=== PATIENT | female | born 1955 | race Caucasian/White ===

== ENCOUNTER 2016-09-15 16:35 | Emergency (ER) | payer MEDICAID ==
[~2016-09-15] VITALS: Ht 157.5 cm; Wt 61.2 kg
[~2016-09-15 16:35] MED LIST: ADVAI100I PO; ALBU8I INH; PRED20 PO; ZITH250T PO; ZOLP10TA3 PO; [UNRECOGNIZED DRUG - CODE] PO
[2016-09-15 16:37] VITALS: BP 139/98; PULSE 86; RESP 20; TEMP 98.7; O2SAT 96
[2016-09-15] MEDS ORDERED: SODIUM CHLOR 0.9% 1000 ML INJ 1,000 ML IV SCH (17:27)
[2016-09-15] MEDS ORDERED: PROCHLORPERAZINE INJ 10 MG/2 ML VIAL IVP ONE (17:30)
[2016-09-15] MEDS ORDERED: SODIUM CHLORIDE 0.9% FLUSH 5 ML FLUSH IVF PRN ×2 (17:30)
[2016-09-15] MEDS ORDERED: diphenhydrAMINE HCL 50 MG/ML VIAL IVP ONE (17:30)
[2016-09-15 17:31] VITALS: RESP 16; O2SAT 97
[2016-09-15 17:40] VITALS: BP 155/84; PULSE 84; RESP 16; O2SAT 97
--- NOTE | 2016-09-15 17:40 | PD ---
HPI Chief Complaint: Cold / Flu Symptoms Time Seen by Provider: 16:59 Travel History International Travel<30 days: No Contact w/Intl Traveler<30days: No Traveled to known affect area: No History of Present Illness HPI This is a 60-year-old female presents with headache over bilateral maxillary for the past few days. Patient has significant history of having colonoscopy and endoscopy this morning, she did have to be on BiPAP during the procedure and states that this seemed to make her headache worse when she woke up. Patient states she's also been having some nausea and vomiting unable to take her reflux medication secondary to a pH study is ongoing. Denies any abdominal pain or discomfort. She has not discussed these symptoms with her psychotherapist since leaving the procedure this morning. Denies any fevers. Does have a history of on and off headaches. PFSH Past Medical History Arthritis: Yes Asthma: Yes Autoimmune Disease: Yes ([place]) Cardiovascular Problems: Yes (HTN CHOL) High Cholesterol: Yes Chest Pain: Yes COPD: Yes Cerebrovascular Accident: Yes Diminished Hearing: No Fibromyalgia: Yes Headaches: Yes Hypertension: Yes Musculoskeletal: Yes (EXTENSIVE BACK PAIN/PROBLEMS) Respiratory: Yes (fibrosis) Pneumonia: Yes Sleep Apnea: Yes (c-pap) Ulcer: Yes Menopausal: Yes : 3 Para: 3 Tubal Ligation: Yes Past Surgical History Gynecologic Surgery: Yes Other Surgery: Yes (BREAST AUGMENTATION ) Social History Alcohol Use: No Tobacco Use: No Substance Use: No Allergies-Medications (Allergen,Severity, Reaction): Coded Allergies: HMG-CoA Reductase Inhibitors (Unverified Allergy, Unknown, Tingling, ) Reported Meds & Prescriptions Reported Meds & Active Scripts Active Zofran Odt (Ondansetron Odt) 4 Mg Tab 4 Mg SL Q6HR PRN Phenergan (Promethazine HCl) 25 Mg Tab 25 Mg PO Q6H PRN Azithromycin 250 Mg Tab 250 Mg PO DIRECTED Take 2 tabs (500 mg) on day 1 then 1 tab daily x 4 days. Zithromax Z-Bhavin (Azithromycin) 250 Mg Tab 250 Mg PO DIRECTED 500 MG (2 TABLETS) PO ON DAY 1, THEN 250 MG (1 TABLET) PO ON DAYS 2 TO 5. Deltasone 20 Mg Tab (Prednisone) 20 Mg Tab 40 Mg PO DAILY 4 Days Reported Advair Diskus 100/50 (Salmeterol Xinafoate/Fluticasone) Fluticasone/Salmeterol 100/50 Inh 2 Puff PO BID Ventolin Hfa (Albuterol Sulfate) 8 Gm Aero 1 Puff INH DIRECTED PRN * SHAKE WELL BEFORE USE * Ambien 10 Mg Tab (Zolpidem Tartrate) 10 Mg Tab 5 Mg PO HS PRN Ofev (Nintedanib Esylate) 100 Mg Cap 150 Mg PO DAILY Review of Systems Except as stated in HPI: all other systems reviewed are Neg Physical Exam Narrative GENERAL: Well-developed well-nourished Appears well, pleasant and smiling in no apparent distress. SKIN: Warm and dry. HEAD: Atraumatic. Normocephalic. EYES: Pupils equal and round. No scleral icterus. No injection or drainage. ENT: No nasal bleeding or discharge. Mucous membranes pink and moist. TM's clear bilaterally, minimal percussive tenderness to bilateral maxillae. Oropharynx clear. No facial swelling apprceiated. NECK: Trachea midline. No JVD. CARDIOVASCULAR: Regular rate and rhythm. No murmur appreciated. RESPIRATORY: No accessory muscle use. Clear to auscultation. Breath sounds equal bilaterally. GASTROINTESTINAL: Abdomen soft, non-tender, nondistended. Hepatic and splenic margins not palpable. MUSCULOSKELETAL: No obvious deformities. No clubbing. No cyanosis. No edema. NEUROLOGICAL: Awake and alert. Cranial nerves II through XII are grossly intact and nonfocal, 5 out of 5 strength in all 4 extremities, cerebellar testing negative, neck shock movements intact. PSYCHIATRIC: Appropriate mood and affect; insight and judgment normal. Data Data Last Documented VS Vital Signs Date Time Temp Pulse Resp B/P Pulse Ox O2 Delivery O2 Flow Rate FiO2 09/15/16 20:07 81 18 122/65 97 09/15/16 19:39 Room Air 09/15/16 16:37 98.7 Orders Basic Metabolic Panel (Bmp) (09/15/16 17:27) Complete Blood Count With Diff (09/15/16 17:27) Urinalysis - C+S If Indicated (09/15/16 17:27) Iv Access Insert/Monitor (09/15/16 17:27) Ecg Monitoring (09/15/16 17:27) Oximetry (09/15/16 17:27) Sodium Chlor 0.9% 1000 Ml Inj (Ns 1000 M (09/15/16 17:27) Sodium Chloride 0.9% Flush (Ns Flush) (09/15/16 17:30) Chest, Single Ap (09/15/16 17:27) Ecg Monitoring (09/15/16 17:27) Sodium Chloride 0.9% Flush (Ns Flush) (09/15/16 17:30) Prochlorperazine Inj (Compazine Inj) (09/15/16 17:30) Diphenhydramine Inj (Benadryl Inj) (09/15/16 17:30) Labs Laboratory Tests Test 09/15/16 09/15/16 17:30 17:45 Urine Color YELLOW Urine Turbidity CLEAR Urine pH 7.5 Urine Specific [place] 1.014 Urine Protein NEG mg/dL Urine Glucose (UA) NEG mg/dL Urine Ketones 15 mg/dL Urine Occult Blood NEG Urine Nitrite NEG Urine Bilirubin NEG Urine Leukocyte Esterase NEG Urine RBC 0-3 /hpf Urine WBC 0-2 /hpf Urine Squamous Epithelial 0-5 /hpf Cells Microscopic Urinalysis Comment CULT NOT INDICATED White Blood Count 8.7 TH/MM3 Red Blood Count 4.26 MIL/MM3 Hemoglobin 13.1 GM/DL Hematocrit 40.6 % Mean Corpuscular Volume 95.2 FL Mean Corpuscular Hemoglobin 30.8 PG Mean Corpuscular Hemoglobin 32.4 % Concent Red Cell Distribution Width 13.7 % Platelet Count 314 TH/MM3 Mean Platelet Volume 7.6 FL Neutrophils (%) (Auto) 61.6 % Lymphocytes (%) (Auto) 29.2 % Monocytes (%) (Auto) 6.1 % Eosinophils (%) (Auto) 2.0 % Basophils (%) (Auto) 1.1 % Neutrophils # (Auto) 5.4 TH/MM3 Lymphocytes # (Auto) 2.5 TH/MM3 Monocytes # (Auto) 0.5 TH/MM3 Eosinophils # (Auto) 0.2 TH/MM3 Basophils # (Auto) 0.1 TH/MM3 CBC Comment DIFF FINAL Differential Comment Sodium Level 140 MEQ/L Potassium Level 3.6 MEQ/L Chloride Level 102 MEQ/L Carbon Dioxide Level 28.6 MEQ/L Anion Gap 9 MEQ/L Blood Urea Nitrogen 9 MG/DL Creatinine 0.66 MG/DL Estimat Glomerular Filtration 91 ML/MIN Rate Random Glucose 82 MG/DL Calcium Level 8.6 MG/DL MDM Medical Decision Making Medical Screen Exam Complete: Yes Emergency Medical Condition: Yes Differential Diagnosis Sinus headache, sinusitis, sore throat, gerd, GI perf unlikely, Nausea possibly secondary to anesthesia or lack of abdominal meds. Narrative Course Patient is 60 year old female presents with chief complaint of headache after using bipap during her colonoscopy/endoscopy procedure today. Nausea with NB/ NB vomiting. Patient abdomen is benign. CXR shows no free air. She was given benadryl and compazine, and had completely resolved her symptoms. Discussed CT exam but at this time my index of suspicion for acute abdomen is very low and perforation just as low. She is stable for discharge. Discussed follow up with psychotherapist in the morning and return to ED criteria. Diagnosis Primary Impression: Sinus headache Additional Impression: Nausea Med/Other Pt SpecificInfo: Prescription(s) given Scripts Ondansetron Odt (Zofran Odt)4 Mg Tab4 Mg SL Q6HR PRN (Nausea/Vomiting) #30 TAB Ref 0 Prov:Vineet Livingston MD 09/15/16 Promethazine (Phenergan)25 Mg Tab25 Mg PO Q6H PRN (Nausea/Vomiting) #12 TAB Ref 0 Prov:Vineet Livingston MD 09/15/16 Azithromycin 250 Mg [id number] Mg PO DIRECTED #6 TAB Ref 0 Take 2 tabs (500 mg) on day 1 then 1 tab daily x 4 days. Prov:Vineet Livingston MD 09/15/16 Disposition: 01 DISCHARGE HOME Condition: Stable Vineet Livingston MD Sep 15, 2016 17:40
[2016-09-15 18:08] LABS: POTASSIUM 3.6 MEQ/L (3.5-5.1)
[2016-09-15 18:10] LABS: BICARBONATE 28.6 MEQ/L (21.0-32.0)
[2016-09-15 18:19] LABS: BLOOD, URINE NEG (NEG); GLUCOSE,URINE NEG (NEG); KETONE, URINE 15 mg/dL (NEG); NITRITE,URINE NEG (NEG); PH, URINE 7.5 (5.0-8.5)
[2016-09-15 18:31] LABS: AUTOMATED NEUTROPHIL # 5.4 TH/MM3 (1.8-7.7); BASOPHIL # 0.1 TH/MM3 (0-0.2); BASOPHIL % 1.1 % (0.0-2.0); EOSINOPHIL # 0.2 TH/MM3 (0-0.4); HEMATOCRIT 40.6 % (35.0-46.0); HEMO FLAGS DIFF FINAL; LYMPH % 29.2 % (9.0-44.0); LYMPHOCYTE # 2.5 TH/MM3 (1.0-4.8); MEAN CELL VOLUME 95.2 FL (80.0-100.0); MEAN CORPUSCULAR HEMOGLOBIN 30.8 PG (27.0-34.0); MEAN CORPUSCULAR HGB CONC 32.4 % (32.0-36.0); MONO % 6.1 % (0.0-8.0); NEUT % 61.6 % (16.0-70.0); PLATELET COUNT 314 TH/MM3 (150-450); RED BLOOD COUNT 4.26 MIL/MM3 (4.00-5.30); RED CELL DISTRIBUTION WIDTH 13.7 % (11.6-17.2); WHITE BLOOD COUNT 8.7 TH/MM3 (4.0-11.0)
--- NOTE | 2016-09-15 18:35 | RADHPO ---
EXAM DATE/TIME: 09/15/2016 18:06 [facility] COMPARISON: CHEST PA & LAT, November 12, 2015, 11:16. INDICATIONS : Vomiting and epigastric pain since an endoscopy this afternoon. MEDICAL HISTORY : Pulmonary Fibrosis. SURGICAL HISTORY : None. ENCOUNTER: Initial ACUITY: 1 day PAIN SCORE: 5/10 LOCATION: Bilateral chest FINDINGS: A single view of the chest demonstrates the lungs to be symmetrically aerated without evidence of mas s, infiltrate or effusion. The cardiomediastinal contours are unremarkable. Osseous structures are intact. No free air seen in the upper abdomen. Implanted loop recorder noted. CONCLUSION: No evidence of acute cardiopulmonary disease. Kevin Holm MD on September 15, 2016 at 18:33 Board Certified Radiologist. This report was verified electronically.
[2016-09-15 18:40] VITALS: BP 132/74; PULSE 89; RESP 16; O2SAT 97
[2016-09-15 18:51] LABS: URINE COLOR YELLOW (YELLW/STRAW)
[2016-09-15 18:53] LABS: COMMENT (UR) CULT NOT INDICATED; CULTURE IF INDICATED CULT NOT INDICATED; RBC, URINE 0-3 /hpf (0-3); SQUAMOUS EPITHELIAL CELL URINE 0-5 /hpf (0-5); WBC, URINE 0-2 /hpf (0-5)
[2016-09-15] MEDS ORDERED: PROM25TA5 PO (19:29)
[2016-09-15] MEDS ORDERED: AZIT250T3 PO (19:29)
[2016-09-15] MEDS ORDERED: ZOFR4TAB3 SL (19:29)
[2016-09-15 19:39] VITALS: BP 110/54; PULSE 87; RESP 16; O2SAT 97
[2016-09-15 20:07] VITALS: BP 122/65
== END 2016-09-15 20:21 | disposition home or self-care (01) ==
LOC: PHED 16:35
DX: R51 Headache (principal); R11.2 Nausea with vomiting, unspecified; I10 Essential (primary) hypertension; G47.30 Sleep apnea, unspecified; E78.00 Pure hypercholesterolemia, unspecified; Z98.890 Other specified postprocedural states; Z87.39 Personal history of other diseases of the musculoskeletal system and connective tissue; Z87.09 Personal history of other diseases of the respiratory system; Z86.2 Personal history of diseases of the blood and blood-forming organs and certain disorders involving the immune mechanism; Z86.79 Personal history of other diseases of the circulatory system; Z86.73 Personal history of transient ischemic attack (TIA), and cerebral infarction without residual deficits; Z87.19 Personal history of other diseases of the digestive system
CPT/HCPCS: 71010; 80048; 81001; 85025; 96361; 96374; 96375; 99284; J0780; J1200; J7030

== ENCOUNTER 2017-04-23 09:55 | Emergency (ER) | payer MEDICAID ==
[~2017-04-23] VITALS: Ht 157.5 cm; Wt 58.0 kg
[~2017-04-23 09:55] MED LIST changes: +AZIT250T3 PO; +PROM25TA5 PO; +ZOFR4TAB3 SL
[2017-04-23 09:58] VITALS: BP 160/93; PULSE 73; RESP 17; TEMP 98.2; O2SAT 95
[2017-04-23] MEDS ORDERED: SPIRCAP INH (10:26)
[2017-04-23] MEDS ORDERED: VENTAER INH (10:26)
[2017-04-23] MEDS ORDERED: OXYC1TAB36 PO (10:26)
[2017-04-23] MEDS ORDERED: AMBI5TAB PO (10:26)
[2017-04-23] MEDS ORDERED: PRED10 PO (10:26)
[2017-04-23] MEDS ORDERED: ADVA250A INH (10:26)
[2017-04-23] MEDS ORDERED: VARE1 PO (10:26)
[2017-04-23] MEDS ORDERED: SODIUM CHLORIDE 0.9% FLUSH 10 ML FLUSH IVF PRN (11:30)
--- NOTE | 2017-04-23 11:34 | PD ---
HPI . cold/flu/malaise/weakness x 2 weeks Chief Complaint: General Weakness Time Seen by Provider: 11:25 Travel History International Travel<30 days: No Contact w/Intl Traveler<30days: No Traveled to known affect area: No History of Present Illness HPI 61-year-old female presents to the emergency department for evaluation of fever , chills, sore throat, lethargy and weakness 2 weeks. Patient has a history of pulmonary fibrosis and rheumatoid arthritis. Patient typically takes 2.5 mg of prednisone daily and has done this for several months. Just recently she increased the prednisone to 10 mg daily due to her rheumatoid arthritis exacerbation. Approximately 2 weeks ago the patient noticed increased dyspnea with activity, fevers, weakness, nasal congestion, sore throat and malaise. Patient called her primary and was treated empirically with antibiotics for sinusitis, however she reports that none of the symptoms resolved. She reports sleeping all day every day, but states she is usually energetic and lively. Patient denies any chest pain, abdominal pain, nausea, vomiting, diarrhea or lightheadedness. PFSH Past Medical History Arthritis: Yes Asthma: Yes Autoimmune Disease: Yes ([place]) Cardiovascular Problems: Yes (HTN CHOL) High Cholesterol: Yes Chest Pain: Yes COPD: Yes Cerebrovascular Accident: Yes Diminished Hearing: No Fibromyalgia: Yes GERD: Yes Headaches: Yes Hypertension: Yes Musculoskeletal: Yes (EXTENSIVE BACK PAIN/PROBLEMS) Respiratory: Yes (pulmonary fibrosis, emphysema) Pneumonia: Yes Sleep Apnea: Yes (c-pap) Ulcer: Yes Menopausal: Yes : 3 Para: 3 Tubal Ligation: Yes Past Surgical History Gynecologic Surgery: Yes (breast augmentation) Other Surgery: Yes (BREAST AUGMENTATION ) Social History Alcohol Use: No Tobacco Use: Yes (3 cigs a day but recently slow down on smoking recent / ppd ) Substance Use: No Allergies-Medications (Allergen,Severity, Reaction): Coded Allergies: amlodipine (Unverified Allergy, Unknown, Tingling, 04/23/17) atorvastatin (Unverified Allergy, Unknown, Tingling, 04/23/17) pravastatin (Unverified Allergy, Unknown, Tingling, 04/23/17) simvastatin (Unverified Allergy, Unknown, Tingling, 04/23/17) Reported Meds & Prescriptions Reported Meds & Active Scripts Active Reported Oxycodone-Acetaminophen 10-325 mg Tab 1 Tab PO BID PRN Chantix (Varenicline) 1 Mg Tab 1 Mg PO BIDPC Ambien (Zolpidem Tartrate) 5 Mg Tab 5 Mg PO HS PRN Prednisone 10 Mg Tab 10 Mg PO DAILY Advair Diskus Inh (Fluticasone-Salmeterol Inh) 250-50 Mcg/Blist Aer 1 Puff INH BID Rinse mouth after use. Spiriva Handihaler (Tiotropium Inh) 18 Mcg Cap 18 Mcg INH DAILY 1 capsule = 18 mcg Ventolin Hfa 18 GM Inh (Albuterol Sulfate) 90 Mcg/Act Aer 1 Puff INH PRN Review of Systems Except as stated in HPI: all other systems reviewed are Neg Physical Exam Narrative GENERAL: Well-developed well nourished pale 61-year-old in no acute distress SKIN: Focused skin assessment cool/dry/thin/pale. HEAD: Atraumatic. Normocephalic. EYES: Pupils equal and round. No scleral icterus. No injection or drainage. ENT: No nasal bleeding or discharge. Mucous membranes pink and moist. NECK: Trachea midline. No JVD. CARDIOVASCULAR: Regular rate and rhythm. No murmur appreciated. RESPIRATORY: No accessory muscle use. Clear to auscultation. Breath sounds equal bilaterally. GASTROINTESTINAL: Abdomen soft, non-tender, nondistended. Hepatic and splenic margins not palpable. MUSCULOSKELETAL: No obvious deformities. No clubbing. No cyanosis. No edema. NEUROLOGICAL: Awake and alert. No obvious cranial nerve deficits. Motor grossly within normal limits. Normal speech. PSYCHIATRIC: Appropriate mood and affect; insight and judgment normal. Data Data Last Documented VS Vital Signs Date Time Temp Pulse Resp B/P (MAP) Pulse Ox O2 Delivery O2 Flow Rate FiO2 04/23/17 11:46 16 98 Room Air 04/23/17 10:12 81 04/23/17 09:58 98.2 Orders Orders Complete Blood Count With Diff (04/23/17 11:21) Basic Metabolic Panel (Bmp) (04/23/17 11:21) Magnesium (Mg) (04/23/17 11:21) Ckmb (Isoenzyme) Profile (04/23/17 11:21) Troponin I (04/23/17 11:21) Urinalysis - C+S If Indicated (04/23/17 11:21) Influenzae A/B Antigen (04/23/17 11:21) Iv Access Insert/Monitor (04/23/17 11:21) Electrocardiogram (04/23/17 11:21) Ecg Monitoring (04/23/17 11:21) Oximetry (04/23/17 11:21) Oxygen Administration (04/23/17 11:21) Chest, Single Ap (04/23/17 11:21) Sodium Chloride 0.9% Flush (Ns Flush) (04/23/17 11:30) Labs Laboratory Tests Test 04/23/17 11:40 04/23/17 11:45 White Blood Count 10.1 TH/MM3 Red Blood Count 4.35 MIL/MM3 Hemoglobin 14.4 GM/DL Hematocrit 42.2 % Mean Corpuscular Volume 96.9 FL Mean Corpuscular Hemoglobin 33.0 PG Mean Corpuscular Hemoglobin Concent 34.1 % Red Cell Distribution Width 13.7 % Platelet Count 290 TH/MM3 Mean Platelet Volume 7.0 FL Neutrophils (%) (Auto) 66.2 % Lymphocytes (%) (Auto) 27.3 % Monocytes (%) (Auto) 5.1 % Eosinophils (%) (Auto) 0.5 % Basophils (%) (Auto) 0.9 % Neutrophils # (Auto) 6.7 TH/MM3 Lymphocytes # (Auto) 2.7 TH/MM3 Monocytes # (Auto) 0.5 TH/MM3 Eosinophils # (Auto) 0.1 TH/MM3 Basophils # (Auto) 0.1 TH/MM3 CBC Comment DIFF FINAL Differential Comment Blood Urea Nitrogen 14 MG/DL Creatinine 0.66 MG/DL Random Glucose 100 MG/DL Calcium Level 9.2 MG/DL Magnesium Level 2.3 MG/DL Sodium Level 141 MEQ/L Potassium Level 4.1 MEQ/L Chloride Level 109 MEQ/L Carbon Dioxide Level 27.3 MEQ/L Anion Gap 5 MEQ/L Estimat Glomerular Filtration Rate 91 ML/MIN Total Creatine Kinase 52 U/L Troponin I LESS THAN 0.02 NG/ML Urine Color LIGHT-YELLOW Urine Turbidity CLEAR Urine pH 5.5 Urine Specific [place] 1.004 Urine Protein NEG mg/dL Urine Glucose (UA) NEG mg/dL Urine Ketones NEG mg/dL Urine Occult Blood NEG Urine Nitrite NEG Urine Bilirubin NEG Urine Urobilinogen LESS THAN 2.0 MG/DL Urine Leukocyte Esterase NEG Urine RBC LESS THAN 1 /hpf Urine WBC 1 /hpf Microscopic Urinalysis Comment CULT NOT INDICATED MDM Medical Decision Making Medical Screen Exam Complete: Yes Emergency Medical Condition: Yes Medical Record Reviewed: Yes Differential Diagnosis Differential diagnoses include but are not limited to coronary event, pneumonia , viral illness, URI, influenza, electrolyte abnormality Narrative Course 61-year-old female presents to the emergency department for evaluation of fever , chills, malaise, increased dyspnea on exertion and fatigue 2 weeks. Patient has a history of pulmonary fibrosis and rheumatoid arthritis. Patient is on prednisone daily and has been for several months. CBC, BMP, magnesium, troponin , CK, UA, influenza nasal wash, EKG, chest x-ray ordered and pending. CBC shows no acute abnormality BMP shows no acute abnormality MAG within normal limits at 2.3 TROPONIN less than 0.02 CK within normal limits at 52 UA shows no acute abnormality INFLUENZA NASAL WASH negative for flu A and B antigens EKG sinus bradycardia with heart rate 58 CHEST X-RAY no acute cardio pulmonary findings. Based on patient's symptoms, clinical presentation, lab results, radiological results, vital sign review and physical exam it is not necessary to admit the patient to the hospital or keep the patient in the emergency department for further evaluation. 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 Diagnosis Primary Impression: Viral syndrome Additional Impression: Lethargy Referrals: Primary Care Physician Patient Instructions: Fatigue (ED), General Instructions Additional Instructions: Please return to emergency department if your symptoms return or worsen. Follow up with your primary care provider. Take medications as prescribed. Med/Other Pt SpecificInfo: No Change to Meds Disposition: 01 DISCHARGE HOME Condition: Stable Chantal Arreguin Apr 23, 2017 11:34
[2017-04-23 11:46] VITALS: RESP 16; O2SAT 98
[2017-04-23 11:50] LABS: AUTOMATED NEUTROPHIL # 6.7 TH/MM3 (1.8-7.7); BASOPHIL # 0.1 TH/MM3 (0-0.2); BASOPHIL % 0.9 % (0.0-2.0); EOSINOPHIL # 0.1 TH/MM3 (0-0.4); EOSINOPHIL % 0.5 % (0.0-4.0); HEMATOCRIT 42.2 % (35.0-46.0); HEMO FLAGS DIFF FINAL; LYMPH % 27.3 % (9.0-44.0); LYMPHOCYTE # 2.7 TH/MM3 (1.0-4.8); MEAN CELL VOLUME 96.9 FL (80.0-100.0); MEAN CORPUSCULAR HGB CONC 34.1 % (32.0-36.0); MONO % 5.1 % (0.0-8.0); NEUT % 66.2 % (16.0-70.0); PLATELET COUNT 290 TH/MM3 (150-450); RED BLOOD COUNT 4.35 MIL/MM3 (4.00-5.30); RED CELL DISTRIBUTION WIDTH 13.7 % (11.6-17.2); WHITE BLOOD COUNT 10.1 TH/MM3 (4.0-11.0)
[2017-04-23 11:56] LABS: BLOOD, URINE NEG (NEG); GLUCOSE,URINE NEG (NEG); KETONE, URINE NEG (NEG); NITRITE,URINE NEG (NEG); PH, URINE 5.5 (5.0-8.5); URINE COLOR LIGHT-YELLOW (YELLW/STRAW)
[2017-04-23 11:59] LABS: COMMENT (UR) CULT NOT INDICATED; CULTURE IF INDICATED CULT NOT INDICATED
[2017-04-23 12:14] LABS: ANION GAP 5 MEQ/L (5-15); BICARBONATE 27.3 MEQ/L (21.0-32.0); BLOOD UREA NITROGEN 14 MG/DL (7-18); CHLORIDE 109 MEQ/L (98-107); GLOMERULAR FILTRATION RATE 91 ML/MIN (>89); MAGNESIUM 2.3 MG/DL (1.5-2.5); POTASSIUM 4.1 MEQ/L (3.5-5.1); SODIUM (NA) 141 MEQ/L (136-145)
[2017-04-23 12:19] LABS: CREATINE KINASE 52 U/L (26-192)
--- NOTE | 2017-04-23 12:30 | RADRPT ---
EXAM DATE/TIME: 04/23/2017 11:46 [facility] COMPARISON: CHEST SINGLE AP, September 15, 2016, 18:06. INDICATIONS : Weakness, shortness of breath, lethargic x2 weeks. MEDICAL HISTORY : None. SURGICAL HISTORY : None. ENCOUNTER: Initial ACUITY: 2 weeks PAIN SCORE: 0/10 LOCATION: Bilateral chest FINDINGS: A single view of the chest demonstrates the lungs to be symmetrically aerated without evidence of mas s, infiltrate or effusion. The cardiomediastinal contours are unremarkable. Osseous structures are intact. CONCLUSION: 1. No acute cardiopulmonary findings. Tomas Hewitt MD on April 23, 2017 at 12:28 Board Certified Radiologist. This report was verified electronically.
--- NOTE | 2017-04-23 12:59 | EKG ---
Date Performed: 04/23/2017 Time Performed: 11:34:23 PTAGE: 61 years EKG: SINUS BRADYCARDIA BORDERLINE ECG PREVIOUS TRACING : 11/12/2015 10.27 No significant change from previous tracing noted. DOCTOR: Ortega Garcia Interpretating Date/Time 04/23/2017 12:57:38
== END 2017-04-23 13:40 | disposition home or self-care (01) ==
LOC: NEPC 09:55
DX: B34.9 Viral infection, unspecified (principal); R53.83 Other fatigue; I10 Essential (primary) hypertension; M06.9 Rheumatoid arthritis, unspecified; J84.10 Pulmonary fibrosis, unspecified; G47.33 Obstructive sleep apnea (adult) (pediatric); R07.9 Chest pain, unspecified
CPT/HCPCS: 71010; 80048; 81001; 82550; 83735; 84484; 85025; 87804; 93005; 99285

== ENCOUNTER 2017-12-07 18:16 | Emergency (ER) | payer MEDICAID, OTHER ==
[~2017-12-07 18:16] MED LIST changes: +ADVA250A INH; -ADVAI100I PO; -ALBU8I INH; +AMBI5TAB PO; -AZIT250T3 PO; +OXYC1TAB36 PO; +PRED10 PO; -PRED20 PO; -PROM25TA5 PO; +SPIRCAP INH; +VARE1 PO; +VENTAER INH; -ZITH250T PO; -ZOFR4TAB3 SL; -ZOLP10TA3 PO; -[UNRECOGNIZED DRUG - CODE] PO
[2017-12-07 18:26] VITALS: BP 142/81; PULSE 86; RESP 16; TEMP 98.8; O2SAT 97
--- NOTE | 2017-12-07 19:00 | PD ---
HPI Chief Complaint: Injury Time Seen by Provider: 18:43 Travel History International Travel<30 days: No Contact w/Intl Traveler<30days: No Traveled to known affect area: No History of Present Illness HPI 62-year-old female presents emergency department for evaluation of left elbow and wrist pain after a mechanical fall that occurred 3 hours ago. States that she was walking when her shoe caught a nail on the ground and she fell describing a FOOSH injury. Said she braced her fall with her left wrist. Says that she initially could tolerate the pain however has worsened over the last several hours since she decided to come in for evaluation. Says that she has a history of chronic back pain and takes pain medication as needed. Says that her wrist and elbow pain were moderate in severity and felt it was necessary to take 1 of her pain medications today. Says that she is having some pain over the left upper trapezius, left elbow, and left wrist. Says she does have some numbness over the dorsal ring finger but denies weakness. Denies radiation of pain. Denies head trauma, loss of consciousness, neck or back trauma. She her medical history significant for emphysema, and GERD. PFSH Past Medical History Arthritis: Yes Asthma: Yes Autoimmune Disease: Yes ([place]) Cardiovascular Problems: Yes (HTN CHOL) High Cholesterol: Yes Chest Pain: Yes COPD: Yes Cerebrovascular Accident: Yes Diminished Hearing: No Fibromyalgia: Yes GERD: Yes Headaches: Yes Hypertension: Yes Musculoskeletal: Yes (EXTENSIVE BACK PAIN/PROBLEMS) Respiratory: Yes (pulmonary fibrosis, emphysema) Pneumonia: Yes Sleep Apnea: Yes (c-pap) Ulcer: Yes Tetanus Vaccination: < 5 Years Influenza Vaccination: No ?: Not Menopausal: Yes : 3 Para: 3 Tubal Ligation: Yes Past Surgical History Gynecologic Surgery: Yes (breast augmentation) Other Surgery: Yes (BREAST AUGMENTATION ) Social History Alcohol Use: No Tobacco Use: Yes (/2 ppd) Substance Use: No Allergies-Medications (Allergen,Severity, Reaction): Coded Allergies: amlodipine (Verified Allergy, Unknown, Tingling, 12/07/17) atorvastatin (Verified Allergy, Unknown, Tingling, 12/07/17) pravastatin (Verified Allergy, Unknown, Tingling, 12/07/17) simvastatin (Verified Allergy, Unknown, Tingling, 12/07/17) Reported Meds & Prescriptions Reported Meds & Active Scripts Active Reported Oxycodone-Acetaminophen 10-325 mg Tab 1 Tab PO BID PRN Ambien (Zolpidem Tartrate) 5 Mg Tab 5 Mg PO HS PRN Prednisone 10 Mg Tab 10 Mg PO DAILY Advair Diskus Inh (Fluticasone-Salmeterol Inh) 250-50 Mcg/Blist Aer 1 Puff INH BID Rinse mouth after use. Spiriva Handihaler (Tiotropium Inh) 18 Mcg Cap 18 Mcg INH DAILY 1 capsule = 18 mcg Ventolin Hfa 18 GM Inh (Albuterol Sulfate) 90 Mcg/Act Aer 1 Puff INH PRN Review of Systems Except as stated in HPI: all other systems reviewed are Neg Physical Exam Narrative GENERAL: Well-nourished, well-developed patient. SKIN: Focused skin assessment warm/dry. HEAD: Normocephalic. EYES: No scleral icterus. No injection or drainage. PERRLA, EOMI NECK: Supple, trachea midline. No JVD or lymphadenopathy. No midline tenderness. Mild tenderness palpation to the left upper trapezius and lateral musculature of the neck CARDIOVASCULAR: Regular rate and rhythm without murmurs, gallops, or rubs. RESPIRATORY: Breath sounds equal bilaterally. No accessory muscle use. GASTROINTESTINAL: Abdomen soft, non-tender, nondistended. MUSCULOSKELETAL: No cyanosis, or edema. No tenderness palpation of the left shoulder girdle. Tenderness palpation to the left elbow extending out 4 cm distal and proximal to the joint. Limited range of motion secondary to pain. Neurovascular intact left upper extremity. Left wrist-tenderness palpation to the entire wrist, difficulty with flexion and extension secondary to pain BACK: Nontender without obvious deformity. No CVA tenderness. Data Data Last Documented VS Vital Signs Date Time Temp Pulse Resp B/P (MAP) Pulse Ox O2 Delivery O2 Flow Rate FiO2 12/07/17 18:26 98.8 86 16 142/81 (101) 97 Orders Orders Elbow, Complete (4 Vws) (12/07/17 ) Wrist, Complete ([id number]) (12/07/17 ) Support Splint (12/07/17 19:50) MDM Medical Decision Making Medical Screen Exam Complete: Yes Emergency Medical Condition: Yes Differential Diagnosis Left elbow, left wrist contusion, bursitis, cellulitis, fracture, osteonecrosis , avascular necrosis, sprain, strain: Muscle spasms left shoulder girdle Narrative Course 62-year-old female presents emergency department for evaluation of left elbow and wrist pain after a mechanical fall that occurred 3 hours ago. States that she was walking when her shoe caught a nail on the ground and she fell describing a FOOSH injury. Said she braced her fall with her left wrist. Says that she initially could tolerate the pain however has worsened over the last several hours since she decided to come in for evaluation. Says that she has a history of chronic back pain and takes pain medication as needed. Says that her wrist and elbow pain were moderate in severity and felt it was necessary to take 1 of her pain medications today. Says that she is having some pain over the left upper trapezius, left elbow, and left wrist. Says she does have some numbness over the dorsal ring finger but denies weakness. Denies radiation of pain. Denies head trauma, loss of consciousness, neck or back trauma. She her medical history significant for emphysema, and GERD. Vital signs are stable. X-rays ordered to rule out fracture. Last Impressions Wrist X-Ray 12/07/17 0000 Signed Impressions: Service Date/Time: Thursday, December 07, 2017 19:19 - CONCLUSION: Unremarkable examination of the left wrist. Kevin Smith MD Elbow X-Ray 12/07/17 0000 Signed Impressions: Service Date/Time: Thursday, December 07, 2017 19:19 - CONCLUSION: Minimally displaced radial head fracture Kevin Smith MD Patient will be placed in a posterior long-arm sugar tong splint. She was advised to follow-up with orthopedic physician. States that she will call her primary care physician tomorrow for referral. Patient has pain medication at home for her chronic back pain. She states understanding will comply. Diagnosis Primary Impression: Elbow fracture, left Qualified Codes: S42.402A - Unspecified fracture of lower end of left humerus , initial encounter for closed fracture Referrals: Orthopedist Additional Instructions: Follow-up with an orthopedic physician within 1 week. It is imperative as your fracture is near the joint. This is to reduce complications and limited range of motion. Use ice or heat for symptom relief. If no contraindications, you may use Tylenol or Motrin per package instructions for your pain. Elevate the joint above the heart to reduce swelling. You may use compression with Vinny wrap or similar to reduce swelling. If symptoms persist or worsen, return to the emergency department. Follow up with your primary care physician within 2 days. Disposition: 01 DISCHARGE HOME Condition: Stable Nina Harris December 07, 2017 18:59
--- NOTE | 2017-12-07 19:38 | RADRPT ---
EXAM DATE/TIME: 12/07/2017 19:19 [facility] COMPARISON: No previous studies available for comparison. INDICATIONS : Left elbow pain since falling today. MEDICAL HISTORY : None. SURGICAL HISTORY : None. ENCOUNTER: Initial ACUITY: 1 day PAIN SCORE: 10/10 LOCATION: Left elbow. FINDINGS: There is a minimally displaced intra-articular radial head fracture resulting in slight incongruity o f the radial head articular surface. CONCLUSION: Minimally displaced radial head fracture Kevin Smith MD on December 07, 2017 at 19:34 Board Certified Radiologist. This report was verified electronically.
--- NOTE | 2017-12-07 19:39 | RADRPT ---
EXAM DATE/TIME: 12/07/2017 19:19 [facility] COMPARISON: No previous studies available for comparison. INDICATIONS : Left wrist pain since falling today. MEDICAL HISTORY : None. SURGICAL HISTORY : None. ENCOUNTER: Initial ACUITY: 1 day PAIN SCORE: 10/10 LOCATION: Left wrist. FINDINGS: Three view examination of the left wrist demonstrates no soft tissue swelling, dislocation, or fractu re. The carpal bones are in normal alignment. The joint spaces are maintained. Bony mineralization is normal. CONCLUSION: Unremarkable examination of the left wrist. Kevin Smith MD on December 07, 2017 at 19:35 Board Certified Radiologist. This report was verified electronically.
== END 2017-12-07 20:57 | disposition home or self-care (01) ==
LOC: PHEFT 18:16
DX: S52.122A Displaced fracture of head of left radius, initial encounter for closed fracture (principal); M25.532 Pain in left wrist; G89.29 Other chronic pain; M54.9 Dorsalgia, unspecified; K21.9 Gastro-esophageal reflux disease without esophagitis; M35.3 Polymyalgia rheumatica; I10 Essential (primary) hypertension; E78.00 Pure hypercholesterolemia, unspecified; J44.9 Chronic obstructive pulmonary disease, unspecified; M79.7 Fibromyalgia; J84.10 Pulmonary fibrosis, unspecified; F17.210 Nicotine dependence, cigarettes, uncomplicated; W18.39XA Other fall on same level, initial encounter; Y93.01 Activity, walking, marching and hiking
CPT/HCPCS: 29105; 73080; 73110

== ENCOUNTER 2017-12-09 16:59 | Emergency (ER) | payer OTHER ==
[~2017-12-09] VITALS: Ht 157.5 cm; Wt 55.0 kg
[~2017-12-09 16:59] MED LIST changes: -VARE1 PO
[2017-12-09 17:06] VITALS: BP 130/73; PULSE 81; RESP 18; TEMP 98.4; O2SAT 94
--- NOTE | 2017-12-09 18:42 | PD ---
HPI Chief Complaint: Numbness/Tingling Time Seen by Provider: 17:50 Travel History International Travel<30 days: No Contact w/Intl Traveler<30days: No Traveled to known affect area: No History of Present Illness HPI This is a 62-year-old female here for evaluation of left arm pain. She was seen 2 days prior and diagnosed with a minimally displaced radial head fracture. She was placed in a posterior long-arm splint and instructed to follow-up with orthopedic. She reports today she noticed that her fingers are slightly more swollen than the day prior and she had mild pins and needles sensation in the fingers. Her discharge instructions indicated that she should return if she developed numbness which is why she is here today. She is also having pain in the upper arm near the shoulder and was concerned this area was not evaluated with x-ray at her prior visit. She is also requesting her x-rays on a CD for her orthopedic follow-up tomorrow. She denies reinjuring the area. She reports compliance with the splint. Symptom severity is moderate. No aggravating or alleviating factors. PFSH Past Medical History Arthritis: Yes Asthma: Yes Autoimmune Disease: Yes ([place]) Cardiovascular Problems: Yes (HTN CHOL) High Cholesterol: Yes Chest Pain: Yes COPD: Yes Cerebrovascular Accident: Yes Diminished Hearing: No Fibromyalgia: Yes GERD: Yes Headaches: Yes Hypertension: Yes Musculoskeletal: Yes (EXTENSIVE BACK PAIN/PROBLEMS) Respiratory: Yes (pulmonary fibrosis, emphysema) Pneumonia: Yes Sleep Apnea: Yes (c-pap) Ulcer: Yes Tetanus Vaccination: < 5 Years Influenza Vaccination: No Menopausal: Yes : 3 Para: 3 Tubal Ligation: Yes Past Surgical History Gynecologic Surgery: Yes (breast augmentation) Other Surgery: Yes (BREAST AUGMENTATION ) Social History Alcohol Use: No Tobacco Use: Yes (1/2 ppd) Substance Use: No Allergies-Medications (Allergen,Severity, Reaction): Coded Allergies: amlodipine (Verified Allergy, Unknown, Tingling, 12/09/17) atorvastatin (Verified Allergy, Unknown, Tingling, 12/09/17) pravastatin (Verified Allergy, Unknown, Tingling, 12/09/17) simvastatin (Verified Allergy, Unknown, Tingling, 12/09/17) Reported Meds & Prescriptions Reported Meds & Active Scripts Active Reported Oxycodone-Acetaminophen 10-325 mg Tab 1 Tab PO BID PRN Ambien (Zolpidem Tartrate) 5 Mg Tab 5 Mg PO HS PRN Prednisone 10 Mg Tab 10 Mg PO DAILY Advair Diskus Inh (Fluticasone-Salmeterol Inh) 250-50 Mcg/Blist Aer 1 Puff INH BID Rinse mouth after use. Spiriva Handihaler (Tiotropium Inh) 18 Mcg Cap 18 Mcg INH DAILY 1 capsule = 18 mcg Ventolin Hfa 18 GM Inh (Albuterol Sulfate) 90 Mcg/Act Aer 1 Puff INH PRN Review of Systems Except as stated in HPI: all other systems reviewed are Neg General / Constitutional: No: Fever Eyes: No: Visual changes HENT: No: Headaches Cardiovascular: No: Chest Pain or Discomfort Respiratory: No: Shortness of Breath Gastrointestinal: No: Abdominal Pain Genitourinary: No: Dysuria Musculoskeletal: No: Pain Skin: No Rash Neurologic: No: Weakness Psychiatric: No: Depression Physical Exam Narrative GENERAL: Well-appearing 62-year-old female. SKIN: Warm and dry. HEAD: Normocephalic. EYES: No injection or drainage. NECK: Supple GASTROINTESTINAL: nondistended. MUSCULOSKELETAL: No cyanosis. LUE: +TTP mid humerus & elbow. Compartments are soft. Palpable brachial and radial pulse. Can freely wiggle fingers. Normal sensation with sharp/dull differentiation in all 5 fingers. The extremity is warm. Brisk cap refill. BACK: Nontender Data Data Last Documented VS Vital Signs Date Time Temp Pulse Resp B/P (MAP) Pulse Ox O2 Delivery O2 Flow Rate FiO2 12/09/17 17:06 98.4 81 18 130/73 (92) 94 Orders Orders Humerus (Min 2vws) (12/09/17 ) Radiology Film Requests (12/09/17 ) Splint Or Brace Apply/Monitor (12/09/17 18:44) MDM Medical Decision Making Medical Screen Exam Complete: Yes Emergency Medical Condition: Yes Differential Diagnosis Humerus fracture, radial head fracture, nerve contusion, compartment syndrome Narrative Course 62-year-old female here for evaluation of left arm pain and some mild paresthesia that has now resolved. The splint was removed for exam. The extremity is neurovascularly intact. She has normal sensation with sharp/dull differentiation intact. X-ray humerus is negative for fracture. Arm was resplinted and posterior long-arm and sling. She has a follow-up appointment tomorrow with orthopedic. She was given a disc of her radiology films. Return precautions discussed. Patient verbalizes understanding and agrees to plan Diagnosis Primary Impression: Radial head fracture Qualified Codes: S52.125A - Nondisplaced fracture of head of left radius, initial encounter for closed fracture Referrals: Orthopedist Additional Instructions: Keep the splint in place until follow-up with the orthopedist tomorrow. Pain medication as directed. Return if you have new or worsening symptoms Disposition: 01 DISCHARGE HOME Condition: Stable Courtney Kyle December 09, 2017 18:42
--- NOTE | 2017-12-09 19:57 | RADRPT ---
EXAM DATE/TIME: 12/09/2017 18:35 [facility] COMPARISON: No previous studies available for comparison. INDICATIONS : No known injury. Pain in lateral aspect. MEDICAL HISTORY : None. SURGICAL HISTORY : None. ENCOUNTER: Initial ACUITY: 1 day PAIN SCORE: 7/10 LOCATION: Left Humerus FINDINGS: Two view examination of the left humerus demonstrates no evidence of fracture or dislocation. Bony m ineralization is normal. The soft tissue structures are intact. CONCLUSION: No acute disease. Kevin Cobb MD on December 09, 2017 at 19:55 Board Certified Radiologist. This report was verified electronically.
== END 2017-12-09 20:29 | disposition home or self-care (01) ==
LOC: PHEFT 16:59
DX: S52.125A Nondisplaced fracture of head of left radius, initial encounter for closed fracture (principal); M35.3 Polymyalgia rheumatica; I10 Essential (primary) hypertension; M79.7 Fibromyalgia; J84.10 Pulmonary fibrosis, unspecified; F17.210 Nicotine dependence, cigarettes, uncomplicated
CPT/HCPCS: 29105; 73060

== ENCOUNTER 2018-01-07 19:04 | Emergency (ER) | payer OTHER ==
[~2018-01-07] VITALS: Ht 157.5 cm; Wt 56.3 kg
[2018-01-07 19:12] VITALS: BP 143/69; PULSE 75; RESP 18; TEMP 98.4; O2SAT 95
[2018-01-07] MEDS ORDERED: PANT40TA3 PO (19:36)
[2018-01-07] MEDS ORDERED: VARE1 PO (19:36)
[2018-01-07] MEDS ORDERED: NABU1TAB33 PO (19:36)
--- NOTE | 2018-01-07 19:50 | PD ---
HPI Chief Complaint: Cold / Flu Symptoms Time Seen by Provider: 19:36 Travel History International Travel<30 days: No Contact w/Intl Traveler<30days: No Traveled to known affect area: No History of Present Illness HPI 62-year-old female with history of emphysema presents emergency department multiple medical complaints. Says over the last month she has had low-grade temperatures of 99.4-100.3. In addition, says she has felt lethargic and drained for the last 6 weeks. She says that her hands have felt stiff despite no injury. Patient says she saw her primary care physician for these complaints yesterday and he ordered multiple tests to include blood work and xrays of her hands to evaluate for her symptoms. She has not been given the results of her labs yet. Says she decided to come in today because she felt increasingly tired. She denies dysuria but says she has pressure in her pelvic region. She has has generalized body aches, sore throat, and 'enlarged lymph nodes'. Denies unusual chest pain or shortness of breath. PFSH Past Medical History Arthritis: Yes Asthma: Yes Autoimmune Disease: Yes ([place]) Cardiovascular Problems: Yes (HTN CHOL) High Cholesterol: Yes Chest Pain: Yes COPD: Yes Cerebrovascular Accident: Yes Diminished Hearing: No Fibromyalgia: Yes GERD: Yes Headaches: Yes Hypertension: Yes Musculoskeletal: Yes (EXTENSIVE BACK PAIN/PROBLEMS) Respiratory: Yes Pneumonia: Yes Sleep Apnea: Yes (c-pap) Ulcer: Yes ?: Not Menopausal: Yes : 3 Para: 3 Tubal Ligation: Yes Past Surgical History Gynecologic Surgery: Yes (breast augmentation) Other Surgery: Yes (BREAST AUGMENTATION ) Social History Alcohol Use: No Tobacco Use: Yes (1/2 ppd) Substance Use: No Allergies-Medications (Allergen,Severity, Reaction): Coded Allergies: amlodipine (Verified Allergy, Unknown, Tingling, 01/07/18) atorvastatin (Verified Allergy, Unknown, Tingling, 01/07/18) pravastatin (Verified Allergy, Unknown, Tingling, 01/07/18) simvastatin (Verified Allergy, Unknown, Tingling, 01/07/18) Reported Meds & Prescriptions Reported Meds & Active Scripts Active Bactrim DS (Sulfamethoxazole-Trimethoprim) 800-160 Mg Tab 1 Tab PO BID Tamiflu (Oseltamivir Phosphate) 75 Mg Cap 75 Mg PO BID 5 Days Reported Nabumetone 750 Mg Tab 750 Mg PO BID Chantix (Varenicline) 1 Mg Tab 1 Mg PO BIDPC Pantoprazole (Pantoprazole Sodium) 40 Mg Tab 40 Mg PO DAILY Oxycodone-Acetaminophen 10-325 mg Tab 1 Tab PO BID PRN Ambien (Zolpidem Tartrate) 5 Mg Tab 5 Mg PO HS PRN Prednisone 10 Mg Tab 10 Mg PO DAILY Advair Diskus Inh (Fluticasone-Salmeterol Inh) 250-50 Mcg/Blist Aer 1 Puff INH BID Rinse mouth after use. Spiriva Handihaler (Tiotropium Inh) 18 Mcg Cap 18 Mcg INH DAILY 1 capsule = 18 mcg Review of Systems Except as stated in HPI: all other systems reviewed are Neg Physical Exam Narrative GENERAL: WD, WN in NAD SKIN: Focused skin assessment warm/dry. Good skin turgor HEAD: Atraumatic. Normocephalic. EYES: Pupils equal and round. No scleral icterus. No injection or drainage. ENT: No nasal bleeding or discharge. Mucous membranes pink and moist. NECK: Trachea midline. No JVD. No lymphadenopathy CARDIOVASCULAR: Regular rate and rhythm. No murmur appreciated. RESPIRATORY: No accessory muscle use. Clear to auscultation. Breath sounds equal bilaterally. GASTROINTESTINAL: Abdomen soft, nondistended. Mild tenderness palpation of the pelvic region without rebound tenderness. MUSCULOSKELETAL: No obvious deformities. No clubbing. No cyanosis. No edema. TTP to multiple muscle groups. NEUROLOGICAL: Awake and alert. No obvious cranial nerve deficits. Motor grossly within normal limits. Normal speech. PSYCHIATRIC: Appropriate mood and affect; insight and judgment normal. Data Data Last Documented VS Vital Signs Date Time Temp Pulse Resp B/P (MAP) Pulse Ox O2 Delivery O2 Flow Rate FiO2 01/07/18 19:28 18 95 Room Air 01/07/18 19:12 98.4 75 143/69 (93) Orders Orders Urinalysis - C+S If Indicated (01/07/18 19:44) Influenzae A/B Antigen (01/07/18 19:44) Urine Culture (01/07/18 19:50) Ed Discharge Order (01/07/18 20:19) Labs Laboratory Tests Test 01/07/18 19:50 Urine Color YELLOW Urine Turbidity CLEAR Urine pH 7.0 Urine Specific [place] 1.015 Urine Protein NEG mg/dL Urine Glucose (UA) NEG mg/dL Urine Ketones NEG mg/dL Urine Occult Blood NEG Urine Nitrite NEG Urine Bilirubin NEG Urine Urobilinogen 0.2 MG/DL Urine Leukocyte Esterase SMALL Urine RBC 0-3 /hpf Urine WBC 6-8 /hpf Urine WBC Clumps FEW Urine Squamous Epithelial Cells 0-5 /hpf Urine Bacteria RARE /hpf Microscopic Urinalysis Comment CULTURE INDICATED MDM Medical Decision Making Medical Screen Exam Complete: Yes Emergency Medical Condition: Yes Differential Diagnosis malingering, viral syndrome, PMR, RA, fibromyalgia, UTI, cystitis, influenza, viral syndrome Narrative Course 62-year-old female with history of emphysema presents emergency department multiple medical complaints. Says over the last month she has had low-grade temperatures of 99.4-100.3. In addition, says she has felt lethargic and drained for the last 6 weeks. She says that her hands have felt stiff despite no injury. Patient says she saw her primary care physician for these complaints yesterday and he ordered multiple tests to include blood work and xrays of her hands to evaluate for her symptoms. She has not been given the results of her labs yet. Says she decided to come in today because she felt increasingly tired. She denies dysuria but says she has pressure in her pelvic region. She has has generalized body aches, sore throat, and 'enlarged lymph nodes'. Denies unusual chest pain or shortness of breath. She reports some nausea without vomiting. Able to eat and drink normally. Vital signs are stable. Physical exam findings demonstrate a well-developed, well-nourished 62-year-old female in no acute distress. She appears nontoxic. Upon examination, patient complains of multiple muscle groups with tenderness. No objective findings of an upper respiratory infection such as pneumonia. Lungs clear to auscultation bilaterally. Mild tenderness palpation of the lower pelvic region without rebound tenderness. No organomegaly. After review the EMR, it appears the patient has had similar visits to this emergency department previously. She was found to be nontoxic and had generalized complaints. Influenza and urinalysis ordered. Patient appears to have influenza A. Urinalysis suggestive of urinary tract infection. Patient will be discharged with Tamiflu and Bactrim. Advised that she should follow-up with a primary care physician as discussed. Diagnosis Primary Impression: Influenza A Additional Impression: Urinary tract infection Qualified Codes: N30.00 - Acute cystitis without hematuria Referrals: Primary Care Physician Additional Instructions: Follow-up with your primary care physician as discussed. Ensure adequate fluid intake and proper nutrition. Take all antibiotics as prescribed. Scripts Sulfamethoxazole-Trimethoprim (Bactrim DS) 800-160 Mg Tab 1 TAB PO BID for Infection, #14 TAB 0 Refills Prov: Yajaira Davidson MD 01/07/18 Oseltamivir (Tamiflu) 75 Mg Cap 75 MG PO BID for Mgmt Viral Infection for 5 Days, #10 CAP 0 Refills Prov: Yajaiar Davidson MD 01/07/18 Disposition: 01 DISCHARGE HOME Condition: Stable Nina Harris Jan 07, 2018 19:50
[2018-01-07 19:58] LABS: BILIRUBIN, URINE NEG (NEG); BLOOD, URINE NEG (NEG); GLUCOSE,URINE NEG (NEG); KETONE, URINE NEG (NEG); NITRITE,URINE NEG (NEG); URINE COLOR YELLOW (YELLW/STRAW); URINE LEUKOCYTE ESTERASE SMALL (NEG)
[2018-01-07 20:15] LABS: BACTERIA, URINE RARE /hpf; RBC, URINE 0-3 /hpf (0-3); SQUAMOUS EPITHELIAL CELL URINE 0-5 /hpf (0-5); WHITE BLOOD CELL CLUMPS FEW
[2018-01-07] MEDS ORDERED: OSEL75 PO (20:17)
[2018-01-07] MEDS ORDERED: BACT800T5 PO (20:17)
== END 2018-01-07 20:28 | disposition home or self-care (01) ==
LOC: PHEFT 19:04
DX: J10.1 Influenza due to other identified influenza virus with other respiratory manifestations (principal); N30.00 Acute cystitis without hematuria; M19.90 Unspecified osteoarthritis, unspecified site; J45.909 Unspecified asthma, uncomplicated; E78.00 Pure hypercholesterolemia, unspecified; M35.3 Polymyalgia rheumatica; F17.210 Nicotine dependence, cigarettes, uncomplicated; J43.9 Emphysema, unspecified; Z79.899 Other long term (current) drug therapy
CPT/HCPCS: 81001; 87086; 87804; 99283